=== PATIENT | female | born 1980 ===

== ENCOUNTER 2022-08-17 11:17 | Outpatient (CLI) | payer OTHER | END 2022-08-17 11:18 | disposition home or self-care (01) | LOC: SCSMRI 11:17 | PROVIDERS: ATTEND Family Medicine | DX: M54.50 Low back pain, unspecified (principal); M51.36 Other intervertebral disc degeneration, lumbar region; M51.37 Other intervertebral disc degeneration, lumbosacral region | CPT/HCPCS: 72148 ==